=== PATIENT | female | born 2000 | race Caucasian/White ===

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

== ENCOUNTER → 2021-06-05 | Outpatient (CLI) | payer OTHER | LOC: COL.RAD 13:41 | DX: N83.202 Unspecified ovarian cyst, left side (principal); Z97.5 Presence of (intrauterine) contraceptive device ==

== ENCOUNTER 2021-06-06 21:35 | Emergency (ER) | payer OTHER ==
[~2021-06-06] VITALS: Ht 162.6 cm; Wt 50.0 kg
[2021-06-06 22:30] VITALS: TEMP 98.6
[2021-06-06 23:13] LABS: COLLECTION METHOD CLEAN CATCH
[2021-06-06 23:21] LABS: MUCOUS Present (NOT PRESENT); PH 6 (5-8); URINE APPEARANCE Hazy (CLEAR/HAZY); URINE BACTERIA None Seen /hpf (NONE SEEN); URINE BILIRUBIN Negative (NEGATIVE); URINE BLOOD Negative (NEGATIVE); URINE COLOR Straw (YELLOW); URINE GLUCOSE Negative (NEGATIVE); URINE KETONE Negative (NEGATIVE); URINE LEUKOCYTE ESTERASE Negative (NEGATIVE); URINE NITRATE Negative (NEGATIVE); URINE PROTEIN(semi-quant) Negative (NEGATIVE); URINE RBC 0-2 /hpf (0-2); URINE UROBILINOGEN Negative (NEGATIVE)
[2021-06-06 23:35] LABS: BASO % 0.5 % (0.0-2.0); EOS # 0.1 K/mm3 (0.0-0.7); EOS % 0.8 % (0.0-4.0); GRAN # 4.2 K/mm3 (1.4-6.5); GRAN % 53.3 % (42.2-75.2); HEMOGLOBIN 13.6 g/dl (12.0-15.0); LYMPH # 2.8 K/mm3 (1.2-3.4); LYMPH % 35.5 % (20.0-51.0); MEAN CELL VOLUME 86 fl (80.0-95.0); MEAN CORPUSCULAR HEMOGLOBIN 29 pg (26-32); MEAN CORPUSCULAR HGB CONC 34 g/dl (33.0-37.0); MEAN PLATELET VOLUME 9.9 fl (7.4-10.4); MONO # 0.8 K/mm3 (0.1-0.6); MONO % 9.6 % (1.7-9.3); PLATELET COUNT 278 K/mm3 (130-400); RED BLOOD COUNT 4.67 M/mm3 (4.10-5.30); REDCELL DISTRIBUTION WIDTH-CV 11.9 % (11.5-14.5)
[2021-06-06 23:51] LABS: ALBUMIN 4.3 gm/dL (3.5-5.0); BILIRUBIN,TOTAL 0.5 mg/dL (0.2-1.2); CALCIUM 9.4 mg/dL (8.4-10.2); CREATININE, serum 0.84 mg/dL (0.57-1.11); POTASSIUM 3.6 mmol/L (3.5-4.5); TOTAL PROTEIN 7.6 gm/dL (6.2-8.1)
[2021-06-07 01:32] VITALS: BP 124/80; PULSE 86
== END 2021-06-07 01:32 | disposition home or self-care (01) ==
LOC: COL.ER 21:35
PROVIDERS: Emergency Medicine
DX: R10.31 Right lower quadrant pain (principal); N83.202 Unspecified ovarian cyst, left side; K59.00 Constipation, unspecified; Z32.02 Encounter for pregnancy test, result negative
CPT/HCPCS: J1170; J1885; J2270; Q9967

== ENCOUNTER 2021-07-08 16:28 | Emergency (ER) | payer OTHER ==
[~2021-07-08] VITALS: Ht 162.6 cm; Wt 47.7 kg
[2021-07-08 16:29] VITALS: TEMP 97.6
[2021-07-08 17:28] LABS: COLLECTION METHOD CLEAN CATCH
[2021-07-08 17:32] LABS: BASO # 0.1 K/mm3 (0.0-0.2); BASO % 0.5 % (0.0-2.0); EOS # 0.1 K/mm3 (0.0-0.7); EOS % 0.9 % (0.0-4.0); GRAN # 6.3 K/mm3 (1.4-6.5); GRAN % 57.5 % (42.2-75.2); HEMATOCRIT 40.1 % (35.0-45.0); HEMOGLOBIN 13.3 g/dl (12.0-15.0); LYMPH # 3.7 K/mm3 (1.2-3.4); LYMPH % 33.8 % (20.0-51.0); MEAN CELL VOLUME 87 fl (80.0-95.0); MEAN CORPUSCULAR HEMOGLOBIN 29 pg (26-32); MEAN CORPUSCULAR HGB CONC 33 g/dl (33.0-37.0); MEAN PLATELET VOLUME 10.9 fl (7.4-10.4); MONO # 0.8 K/mm3 (0.1-0.6); MONO % 6.8 % (1.7-9.3); PLATELET COUNT 313 K/mm3 (130-400); RED BLOOD COUNT 4.61 M/mm3 (4.10-5.30)
[2021-07-08 17:40] LABS: MUCOUS Present (NOT PRESENT); PH 6 (5-8); SQUAMOUS EPITHELIAL 20-50 /hpf (0-10); URINE APPEARANCE Cloudy (CLEAR/HAZY); URINE BACTERIA Rare /hpf (NONE SEEN); URINE BILIRUBIN Negative (NEGATIVE); URINE BLOOD 3+ (NEGATIVE); URINE COLOR Yellow (YELLOW); URINE GLUCOSE Negative (NEGATIVE); URINE KETONE Trace (NEGATIVE); URINE LEUKOCYTE ESTERASE 1+ (NEGATIVE); URINE NITRATE Negative (NEGATIVE); URINE PROTEIN(semi-quant) Negative (NEGATIVE)
[2021-07-08 17:47] LABS: ALBUMIN 4.1 gm/dL (3.5-5.0); BILIRUBIN,TOTAL 0.6 mg/dL (0.2-1.2); CALCIUM 8.9 mg/dL (8.4-10.2); CREATININE, serum 0.88 mg/dL (0.57-1.11); POTASSIUM 3.9 mmol/L (3.5-4.5); TOTAL PROTEIN 7.6 gm/dL (6.2-8.1)
[2021-07-08] MEDS ORDERED: FLAGYL500 MG PO (19:35)
[2021-07-08] MEDS ORDERED: CIPRO 250MG TA250 MG PO (19:35)
[2021-07-08 19:45] VITALS: BP 114/72; PULSE 82
== END 2021-07-08 19:45 | disposition home or self-care (01) ==
LOC: COL.ER 16:28
PROVIDERS: Emergency Medicine
DX: K52.9 Noninfective gastroenteritis and colitis, unspecified (principal); D72.829 Elevated white blood cell count, unspecified; N30.91 Cystitis, unspecified with hematuria; R82.81 Pyuria
CPT/HCPCS: J2270; J7030; Q9967

== ENCOUNTER 2021-11-30 03:46 | Emergency (ER) | payer OTHER ==
[~2021-11-30] VITALS: Ht 162.6 cm; Wt 49.1 kg
[~2021-11-30 03:46] MED LIST: CIPRO 250MG TA250 MG PO; FLAGYL500 MG PO
[2021-11-30 03:51] VITALS: BP 126/83; TEMP 98.4
[2021-11-30 04:43] VITALS: PULSE 68
== END 2021-11-30 04:43 | disposition home or self-care (01) ==
LOC: COL.ER 03:46
DX: S60.111A Contusion of right thumb with damage to nail, initial encounter (principal); W29.2XXA Contact with other powered household machinery, initial encounter

== ENCOUNTER → 2023-02-07 | Outpatient (CLI) | payer OTHER | LOC: COL.RAD 13:51 | DX: G43.909 Migraine, unspecified, not intractable, without status migrainosus (principal) | CPT/HCPCS: Q9967 ==

== ENCOUNTER 2023-04-28 06:56 | Emergency (ER) | payer OTHER ==
[~2023-04-28] VITALS: Ht 162.6 cm; Wt 48.6 kg
[2023-04-28 06:59] VITALS: TEMP 97.9
[2023-04-28 07:29] LABS: BASO # 0.1 K/mm3 (0.0-0.2); BASO % 1.3 % (0.0-2.0); EOS % 0.6 % (0.0-4.0); GRAN # 3.1 K/mm3 (1.4-6.5); GRAN % 48.6 % (42.2-75.2); HEMATOCRIT 42.3 % (37.0-47.0); HEMOGLOBIN 14.7 g/dl (12.5-16.0); LYMPH # 2.6 K/mm3 (1.2-3.4); LYMPH % 41.4 % (20.0-51.0); MEAN CELL VOLUME 87 fl (80.0-100.0); MEAN CORPUSCULAR HEMOGLOBIN 30 pg (27-31); MEAN CORPUSCULAR HGB CONC 35 g/dl (33.0-37.0); MEAN PLATELET VOLUME 10.1 fl (7.4-10.4); MONO # 0.5 K/mm3 (0.1-0.6); MONO % 7.8 % (1.7-9.3); PLATELET COUNT 343 K/mm3 (130-400); RED BLOOD COUNT 4.84 M/mm3 (4.10-5.30); REDCELL DISTRIBUTION WIDTH-CV 12.1 % (11.5-14.5)
[2023-04-28 07:47] LABS: ALANINE AMINOTRANSFERASE 14 U/L (0-55); ALBUMIN 4.6 gm/dL (3.5-5.0); ALCOHOL(ethanol),MEDICAL 26 mg/dL (0-10); ALKALINE PHOSPHATASE 70 U/L (40-150); ANION GAP 14 mmol/L (7-16); AST,SGOT 20 U/L (5-34); BILIRUBIN,TOTAL 0.5 mg/dL (0.2-1.2); BLOOD UREA NITROGEN 9 mg/dL (7-19); CALCIUM 10.3 mg/dL (8.4-10.2); CARBON DIOXIDE 20 mmol/L (22-29); CHLORIDE 104 mmol/L (98-107); CREATININE, serum 0.89 mg/dL (0.57-1.11); GLUCOSE 99 mg/dL (70-99); MAGNESIUM 1.9 mg/dL (1.6-2.6); POTASSIUM 3.5 mmol/L (3.5-4.5); SODIUM 138 mmol/L (136-145); TOTAL PROTEIN 8.5 gm/dL (6.2-8.1)
[2023-04-28 07:58] LABS: TROPONIN-I < 0.010 ng/mL (0.00-0.033)
[2023-04-28 10:05] LABS: ACETAMINOPHEN < 7.0 ug/mL (10-30)
[2023-04-28 10:08] LABS: TRICYCLIC ANTIDEPRESS URINE NEGATIVE (NEGATIVE)
[2023-04-28 10:20] LABS: SALICYLATE < 5.0 mg/dL (15.0-30.0)
[2023-04-28 10:53] VITALS: BP 123/83; PULSE 100
== END 2023-04-28 10:55 | disposition home or self-care (01) ==
LOC: COL.ER 06:56
PROVIDERS: Family Medicine
DX: F14.10 Cocaine abuse, uncomplicated (principal)
CPT/HCPCS: J7120